=== PATIENT | male | born 1990 | race Caucasian/White ===

== ENCOUNTER 2022-06-23 12:47 | Observation (INO) | payer OTHER ==
[~2022-06-23] VITALS: Ht 177.8 cm; Wt 132.4 kg
--- NOTE | 2022-06-23 12:51 | ED Abdominal Pain ---
General Stated Complaint: ABD PAIN; NAUSEA History of Present Illness Date Seen by Provider: Jun 23, 2022 Time Seen by Provider: 12:51 Initial Comments 31-year-old male presents with pain in his lower abdomen. He reports that started couple about 4 5 days ago. Pain initially in the lower abdomen is can diffuse now. Patient has some mild nausea some little bit of diarrhea. He reports he had a fever of 100.9 yesterday. Patient has not had anything to eat since yesterday. He denies any vomiting. He denies any flank pain. Does report little bit of pain with urination. Allergies and Home Medications Allergies Coded Allergies: fexofenadine (Verified Allergy, Unknown, 06/23/22) Patient Home Medication List Home Medication List Reviewed: Yes Review of Systems Review of Systems Constitutional: No chills, No fever Respiratory: No Symptoms Reported Cardiovascular: No Symptoms Reported Gastrointestinal: Abdominal Pain, Diarrhea, Nausea; Denies Vomiting Genitourinary: Burning Musculoskeletal: no symptoms reported Skin: no symptoms reported Psychiatric/Neurological: No Symptoms Reported Hematologic/Lymphatic: No Symptoms Reported Physical Exam Vital Signs Capillary Refill : Height/Weight/BMI Height: '" Weight: lbs. oz. kg; BMI Method: General Appearance: WD/WN, no apparent distress Respiratory: lungs clear, normal breath sounds Cardiovascular: normal peripheral pulses, regular rate, rhythm Gastrointestinal: guarding, tenderness (Diffuse but greatest in lower quadrant) Extremities: normal range of motion, non-tender, normal inspection Back: normal inspection Neurologic/Psychiatric: alert, normal mood/affect, oriented x 3 Skin: normal color, warm/dry Focused Exam Lactate Level 06/23/22 13:10: Lactic Acid Level 0.98 Lactic Acid Level Laboratory Tests Test 06/23/22 13:10 Lactic Acid Level 0.98 MMOL/L (0.50-2.00) Progress/Results/Core Measures Results/Orders Lab Results Laboratory Tests Test 06/23/22 12:51 06/23/22 12:56 06/23/22 13:10 Range/Units Urine Color YELLOW Urine Clarity CLEAR Urine pH 6.0 5-9 Urine Specific [place] 1.020 1.016-1.022 Urine Protein 1+ H NEGATIVE Urine Glucose (UA) NEGATIVE NEGATIVE Urine Ketones 2+ H NEGATIVE Urine Nitrite NEGATIVE NEGATIVE Urine Bilirubin 1+ H NEGATIVE Urine Urobilinogen 0.2 < = 1.0 MG/DL Urine Leukocyte Esterase NEGATIVE NEGATIVE Urine RBC (Auto) TRACE-I H NEGATIVE Urine RBC NONE /HPF Urine WBC RARE /HPF Urine Squamous Epithelial Cells RARE /HPF Urine Crystals NONE /LPF Urine Bacteria TRACE /HPF Urine Casts NONE /LPF Urine Mucus SMALL H /LPF Urine Culture Indicated NO White Blood Count 18.0 H 4.3-11.0 10^3/uL Red Blood Count 5.13 4.30-5.52 10^6/uL Hemoglobin 14.8 13.3-17.7 g/dL Hematocrit 43 40-54 % Mean Corpuscular Volume 83 80-99 fL Mean Corpuscular Hemoglobin 29 25-34 pg Mean Corpuscular Hemoglobin Concent 35 32-36 g/dL Red Cell Distribution Width 13.2 10.0-14.5 % Platelet Count 370 130-400 10^3/uL Mean Platelet Volume 9.6 9.0-12.2 fL Immature Granulocyte % (Auto) 1 % Neutrophils (%) (Auto) 79 H 42-75 % Lymphocytes (%) (Auto) 13 12-44 % Monocytes (%) (Auto) 7 0-12 % Eosinophils (%) (Auto) 0 0-10 % Basophils (%) (Auto) 0 0-10 % Neutrophils # (Auto) 14.2 H 1.8-7.8 10^3/uL Lymphocytes # (Auto) 2.4 1.0-4.0 10^3/uL Monocytes # (Auto) 1.2 H 0.0-1.0 10^3/uL Eosinophils # (Auto) 0.0 0.0-0.3 10^3/uL Basophils # (Auto) 0.1 0.0-0.1 10^3/uL Immature Granulocyte # (Auto) 0.1 0.0-0.1 10^3/uL Neutrophils % (Manual) 77 % Lymphocytes % (Manual) 13 % Monocytes % (Manual) 9 % Eosinophils % (Manual) 0 % Basophils % (Manual) 1 % Band Neutrophils 0 % Sodium Level 134 L 135-145 MMOL/L Potassium Level 3.9 3.6-5.0 MMOL/L Chloride Level 96 L 98-107 MMOL/L Carbon Dioxide Level 25 21-32 MMOL/L Anion Gap 13 5-14 MMOL/L Blood Urea Nitrogen 13 7-18 MG/DL Creatinine 1.24 0.60-1.30 MG/DL Estimat Glomerular Filtration Rate 79 BUN/Creatinine Ratio 10 Glucose Level 105 70-105 MG/DL Calcium Level 10.0 8.5-10.1 MG/DL Corrected Calcium 8.5-10.1 MG/DL Total Bilirubin 1.2 H 0.1-1.0 MG/DL Aspartate Amino Transf (AST/SGOT) 30 5-34 U/L Alanine Aminotransferase (ALT/SGPT) 56 H 0-55 U/L Alkaline Phosphatase 66 40-136 U/L C-Reactive Protein 26.29 H <0.50 MG/DL Total Protein 8.6 H 6.4-8.2 GM/DL Albumin 4.6 H 3.2-4.5 GM/DL Lactic Acid Level 0.98 0.50-2.00 MMOL/L My Orders Orders - IVETTE VALEROVOR L DO Cbc With Automated Diff (06/23/22 12:58) Comprehensive Metabolic Panel (06/23/22 12:58) Lactic Acid Analyzer (06/23/22 12:58) Ua Culture If Indicated (06/23/22 12:58) Crp Fs (06/23/22 12:58) Ondansetron Injection (Zofran Injectio (06/23/22 13:00) Lactated Ringers (Lr 1000 Ml Iv Solution (06/23/22 12:58) Ed Iv/Invasive Line Start (06/23/22 12:58) Fentanyl Inj (Sublimaze Injection) (06/23/22 12:58) Manual Differential (06/23/22 12:56) Ct Abdomen/Pelvis W (06/23/22 13:30) Iohexol Injection (Omnipaque 350 Mg/Ml 1 (06/23/22 14:00) Received Contrast (Hold Metformin- Contr (06/23/22 14:00) Sodium Chloride Flush (Catheter Flush Sy (06/23/22 14:00) Ns (Ivpb) (Sodium Chloride 0.9% Ivpb Bag (06/23/22 14:00) Zosyn 4.5 Gm (One Time Dose) (06/23/22 14:30) Medications Given in ED Current Medications Medications Dose Ordered Sig/Patrick Route Start Time Stop Time Status Last Admin Dose Admin Iohexol 100 ml ONCE ONCE IV 06/23/22 14:00 06/23/22 14:01 DC 06/23/22 13:56 100 ML Ondansetron HCl 4 mg ONCE ONCE IVP 06/23/22 13:00 06/23/22 13:01 DC 06/23/22 13:28 4 MG Sodium Chloride 10 ml NEEDED PRN IV 06/23/22 14:00 06/23/22 13:57 10 ML Sodium Chloride 100 ml ONCE ONCE IV 06/23/22 14:00 06/23/22 14:01 DC 06/23/22 13:56 100 ML Diagnostic Imaging Comments Date of Exam:06/23/22 CT ABDOMEN/PELVIS W PROCEDURE: CT abdomen and pelvis with contrast. TECHNIQUE: Multiple contiguous axial images were obtained through the abdomen and pelvis after administration of intravenous contrast. Auto Exposure Controls were utilized during the CT exam to meet ALARA standards for radiation dose reduction. All CT scans use one or more of the following dose optimizing techniques: Automated exposure control, MA and/or KvP adjustment based on patient size and exam type or iterative reconstruction. INDICATION: Lower abdominal pain with bloating and nausea and fever for three days. Patient has an elevated white blood cell count. COMPARISON: No prior studies are available for comparison. FINDINGS: Lung bases are clear. There is diffuse low attenuation throughout the liver consistent with hepatic steatosis. No liver mass is identified. Gallbladder is unremarkable. No biliary ductal dilatation is seen. The pancreas and spleen are unremarkable. No adrenal mass is detected. Kidneys are unremarkable. Aorta is nonaneurysmal. Bowel loops are normal in caliber. There is no obstruction. There are significant inflammatory changes identified in the left lower quadrant. There appears to be some thickening of the sigmoid colon and diverticula present. Findings are consistent with acute diverticulitis. There is a small gas collection adjacent to the inflamed sigmoid loop consistent with microperforation. No well-formed fluid collection to suggest abscess formation is seen, however. There is diverticulosis of the descending colon. Bladder and prostate are unremarkable. IMPRESSION: 1. Hepatic steatosis. 2. Findings consistent with acute diverticulitis of the sigmoid colon. There are findings consistent with microperforation of the inflamed sigmoid, but no abscess formation or bowel obstruction is identified. Reviewed: Reviewed by Me, Reviewed/Discussed Departure Impression Primary Impression: Diverticulitis of intestine with perforation without abscess or bleeding Qualified Codes: K57.20 - Diverticulitis of large intestine with perforation and abscess without bleeding Disposition: 30 STILL A PATIENT Condition: Stable Admissions Decision to Admit Reason: Admit from ER (General) Decision to Admit/Date: Jun 23, 2022 Time/Decision to Admit Time: 14:27 Departure-Patient Inst. Referrals: NO,LOCAL PHYSICIAN (PCP/Family) Primary Care Physician CATHERINE VALERO DO Jun 23, 2022 12:51
[2022-06-23] MEDS ORDERED: LACTATED RINGERS 1,000 ML IV STA (12:58)
[2022-06-23] MEDS ORDERED: fentaNYL INJ 100 MCG/2 ML AMP IVP STA (12:58)
[2022-06-23] MEDS ORDERED: ONDANSETRON 4 MG/2 ML (SDV) Z0FRAN IVP ONE (13:00)
[2022-06-23 13:10] LABS: BASOPHILS # (AUTO) 0.1 10^3/uL (0.0-0.1); BASOPHILS % (AUTO) 0 % (0-10); EOSINOPHILS % (AUTO) 0 % (0-10); HEMATOCRIT 43 % (40-54); HEMOGLOBIN 14.8 g/dL (13.3-17.7); LYMPHOCYTES # (AUTO) 2.4 10^3/uL (1.0-4.0); LYMPHOCYTES % (AUTO) 13 % (12-44); MEAN CORPUSCULAR HEMOGLOBIN 29 pg (25-34); MEAN CORPUSCULAR HGB CONC 35 g/dL (32-36); MEAN CORPUSCULAR VOLUME 83 fL (80-99); MEAN PLATELET VOLUME 9.6 fL (9.0-12.2); MONOCYTES # (AUTO) 1.2 10^3/uL (0.0-1.0); MONOCYTES % (AUTO) 7 % (0-12); NEUTROPHILS # (AUTO) 14.2 10^3/uL (1.8-7.8); NEUTROPHILS % (AUTO) 79 % (42-75); PLATELET COUNT 370 10^3/uL (130-400)
[2022-06-23 13:13] LABS: COLOR,URINE YELLOW; GLUCOSE, URINE (UA) NEGATIVE (NEGATIVE); KETONES,URINE 2+ (NEGATIVE); LEUKOCYTE ESTERASE ,URINE NEGATIVE (NEGATIVE); NITRITE,URINE NEGATIVE (NEGATIVE); PROTEIN,URINE 1+ (NEGATIVE)
[2022-06-23 13:24] LABS: BACTERIA,URINE TRACE /HPF; BILIRUBIN,URINE 1+ (NEGATIVE); CLARITY,URINE CLEAR; SQUAMOUS EPITHELIAL CELL,UR RARE /HPF; WBC,URINE RARE /HPF
[2022-06-23 13:28] LABS: BUN/CREATININE RATIO 10; CARBON DIOXIDE 25 MMOL/L (21-32); CHLORIDE 96 MMOL/L (98-107); CREATININE SERUM 1.24 MG/DL (0.60-1.30); GFR ESTIMATED 79; GLUCOSE 105 MG/DL (70-105); POTASSIUM 3.9 MMOL/L (3.6-5.0); SODIUM 134 MMOL/L (135-145)
[2022-06-23 13:29] LABS: ALANINE AMINOTRANSFERASE 56 U/L (0-55); ALBUMIN 4.6 GM/DL (3.2-4.5); ALKALINE PHOSPHATASE 66 U/L (40-136); BILIRUBIN,TOTAL 1.2 MG/DL (0.1-1.0); TOTAL PROTEIN 8.6 GM/DL (6.4-8.2)
[2022-06-23] MEDS ORDERED: IOHEXOL 350 MG/ML 100 ML (OMNIPAQUE 350) VIAL IV ONE (14:00)
[2022-06-23] MEDS ORDERED: NS 100 ML (IVPB) BAG IV ONE (14:00)
[2022-06-23] MEDS ORDERED: HOLD METFORMIN - RECEIVED CONTRAST 20 ML VIAL IV SCH (14:00)
[2022-06-23] MEDS ORDERED: CATHETER FLUSH 10 ML SYR IV PRN (14:00)
[2022-06-23 14:06] LABS: BAND NEUTROPHILS 0 %; BASOPHILS % (MANUAL) 1 %; EOSINOPHILS % (MANUAL) 0 %; LYMPHOCYTES % (MANUAL) 13 %; MONOCYTES % (MANUAL) 9 %; NEUTROPHILS % (MANUAL) 77 %
--- NOTE | 2022-06-23 14:15 | Diagnostic Imaging Report ---
PROCEDURE: CT abdomen and pelvis with contrast. TECHNIQUE: Multiple contiguous axial images were obtained through the abdomen and pelvis after administration of intravenous contrast. Auto Exposure Controls were utilized during the CT exam to meet ALARA standards for radiation dose reduction. All CT scans use one or more of the following dose optimizing techniques: Automated exposure control, MA and/or KvP adjustment based on patient size and exam type or iterative reconstruction. INDICATION: Lower abdominal pain with bloating and nausea and fever for three days. Patient has an elevated white blood cell count. COMPARISON: No prior studies are available for comparison. FINDINGS: Lung bases are clear. There is diffuse low attenuation throughout the liver consistent with hepatic steatosis. No liver mass is identified. Gallbladder is unremarkable. No biliary ductal dilatation is seen. The pancreas and spleen are unremarkable. No adrenal mass is detected. Kidneys are unremarkable. Aorta is nonaneurysmal. Bowel loops are normal in caliber. There is no obstruction. There are significant inflammatory changes identified in the left lower quadrant. There appears to be some thickening of the sigmoid colon and diverticula present. Findings are consistent with acute diverticulitis. There is a small gas collection adjacent to the inflamed sigmoid loop consistent with microperforation. No well-formed fluid collection to suggest abscess formation is seen, however. There is diverticulosis of the descending colon. Bladder and prostate are unremarkable. IMPRESSION: 1. Hepatic steatosis. 2. Findings consistent with acute diverticulitis of the sigmoid colon. There are findings consistent with microperforation of the inflamed sigmoid, but no abscess formation or bowel obstruction is identified. Dictated by: Dictated on workstation # [id number]
[2022-06-23] MEDS ORDERED: PIPERACILLIN SODIUM/TAZOBACTAM 4.5 GM in NS (IVPB) 100 ML IV ONE (14:30)
--- NOTE | 2022-06-23 18:05 | HISTORY AND PHYSICAL ---
DATE OF SERVICE: HISTORY OF PRESENT ILLNESS: The patient is a 31-year-old male who presented to [facility] with 4 to 5-day history of lower abdominal pain. He states that he has not experienced this before and progressively worsened over time. This was also associated with some mild nausea as well as some loose stools; however, no vomiting as well as no red blood per rectum nor any dark tarry stools. He also reports that he had a low-grade fever of 100.[address] scan was performed, which was consistent with sigmoid diverticulitis as well as possibility of a small microperforation that is contained. PAST MEDICAL HISTORY: 1. Morbid obesity. 2. Depression. PAST SURGICAL HISTORY: None known. ALLERGIES: FEXOFENADINE. MEDICATIONS: See medication reconciliation. SOCIAL HISTORY: Negative smoke, negative alcohol. FAMILY HISTORY: Noncontributory. PHYSICAL EXAMINATION: VITAL SIGNS: Temperature 37.0, blood pressure 140/95, pulse 115, respirations 24, pulse ox 97% on room air. REVIEW OF SYSTEMS: No shortness of breath. No cough or sputum production. No chest pain, palpitations, diaphoresis. Intermittent episodes of nausea, no vomiting, did have loose stool yesterday. No hematemesis. No red blood per rectum. Mild fevers yesterday. No recent inadvertent weight loss. All other review of systems negative. PHYSICAL EXAMINATION: The patient's information was accrued by the emergency room physician as well as the patient's electronic medical records. Physical examination will be assessed in the a.m. LABORATORY DATA: WBC 18.0, hemoglobin 14.8, hematocrit 43, platelets 370. BUN 13, creatinine 1.24. ASSESSMENT AND PLAN: A 31-year-old male with sigmoid diverticulitis with mild complication of a contained perforation. This is his first episode and we will recommend conservative management with IV antibiotics as well as bowel rest. Once he clinically improves, his white count normalizes, we will then advance his diet. Once all the inflammation has subsided in approximately 6 weeks, we will then recommend a colonoscopy to rule out other potential causes of the inflammation as well as microperforation. Also depending on the amount of diverticulosis identified, he would have already met the criteria for resection of the diseased portion of the sigmoid colon if he does so choose to proceed with a surgical route. Job ID: [id number] DocumentID: [id number] Dictated Date: 06/23/2022 17:36:24 Revenue Analyst Date: 06/23/2022 18:04:52 Dictated By: RONALD LUEVANO MD
[2022-06-23 18:15] VITALS: BP 132/83
[2022-06-23] MEDS ORDERED: morphine INJ 4 MG/ML 1 ML (VIAL/SYRINGE) IV PRN (18:45)
[2022-06-23] MEDS ORDERED: ONDANSETRON 4 MG/2 ML (SDV) Z0FRAN IV PRN (18:45)
[2022-06-23] MEDS ORDERED: CATHETER FLUSH 10 ML SYR IVP PRN (18:45)
[2022-06-23] MEDS: NS IV 1000 ML 1,000 ML IV SCH (18:55)
[2022-06-23 19:58] VITALS: BP 114/78
[2022-06-23] MEDS: PIPERACILLIN SODIUM/TAZOBACTAM 4.5 GM in NS (IVPB) 100 ML IV SCH (20:33)
[2022-06-24] MEDS: HYDROcodone/APAP 5 MG/325 MG (LORTAB) TAB PO PRN ×2 (00:06→12:44)
[2022-06-24 00:08] VITALS: BP 130/64
[2022-06-24] MEDS: PIPERACILLIN SODIUM/TAZOBACTAM 4.5 GM in NS (IVPB) 100 ML IV SCH ×2 (04:43→12:44)
[2022-06-24 04:45] VITALS: BP 126/69
[2022-06-24 05:46] LABS: BASOPHILS # (AUTO) 0.1 10^3/uL (0.0-0.1); BASOPHILS % (AUTO) 1 % (0-10); EOSINOPHILS # (AUTO) 0.2 10^3/uL (0.0-0.3); EOSINOPHILS % (AUTO) 1 % (0-10); HEMATOCRIT 38 % (40-54); HEMOGLOBIN 12.9 g/dL (13.3-17.7); LYMPHOCYTES # (AUTO) 2.9 10^3/uL (1.0-4.0); LYMPHOCYTES % (AUTO) 28 % (12-44); MEAN CORPUSCULAR HEMOGLOBIN 29 pg (25-34); MEAN CORPUSCULAR HGB CONC 34 g/dL (32-36); MEAN CORPUSCULAR VOLUME 86 fL (80-99); MEAN PLATELET VOLUME 9.8 fL (9.0-12.2); MONOCYTES % (AUTO) 9 % (0-12); NEUTROPHILS # (AUTO) 6.4 10^3/uL (1.8-7.8); NEUTROPHILS % (AUTO) 61 % (42-75); PLATELET COUNT 300 10^3/uL (130-400); WHITE BLOOD COUNT 10.6 10^3/uL (4.3-11.0)
[2022-06-24 06:01] LABS: POTASSIUM 3.8 MMOL/L (3.6-5.0)
[2022-06-24 06:02] LABS: CALCIUM 9.4 MG/DL (8.5-10.1)
[2022-06-24 06:06] LABS: CREATININE SERUM 1.15 MG/DL (0.60-1.30)
[2022-06-24] MEDS: NS IV 1000 ML 1,000 ML IV SCH ×2 (07:22→12:44)
[2022-06-24 08:03] VITALS: BP 123/70
[2022-06-24] MEDS ORDERED: OMEP20TA33 PO (10:37)
[2022-06-24 11:38] VITALS: BP 125/70
[2022-06-24] MEDS ORDERED: HYDR-3817 PO (16:03)
[2022-06-24] MEDS ORDERED: AMOX-355 PO (16:03)
--- NOTE | 2022-06-24 16:04 | Discharge Inst-Surgical ---
D/C Lap Instructions-KIDO New, Converted, or Re-Newed RX: RX on Chart Follow Up Appt in 2 weeks Activity as tolerated low residue diet next 2 weeks. Avoid Alcohol, Caffeine, Spicy [place] and Acid foods. Drink 64 fluid oz or more of fluids per day. Symptoms to Report: Fever over 101 degree F, Nausea/Vomiting If any problems/questions: Contact your physician or go to Emergency Room RONALD LUEVANO MD Jun 24, 2022 16:04
[2022-06-24 16:05] VITALS: BP 134/76
== END 2022-06-24 19:05 | disposition home or self-care (01) ==
LOC: ER FS 12:49 → 4TH 17:55 → UNDOADMIN 17:55 → UNDODISIN 06-24 19:05
PROVIDERS: ADMIT Surgery; ATTEND Surgery
DX: K57.20 Diverticulitis of large intestine with perforation and abscess without bleeding (principal); Z68.41 Body mass index [BMI] 40.0-44.9, adult; E66.01 Morbid (severe) obesity due to excess calories; Z28.310 Unvaccinated for COVID-19
CPT/HCPCS: 36415; 74177; 80048; 80053; 81000; 83605; 85007; 85025; 85027; 86141; 96361; 96375; 96376; G0378; Q9967